=== PATIENT | female | born 1980 | race Caucasian/White ===

== ENCOUNTER 2024-02-22 11:05 | Emergency (ER) | payer MEDICAID ==
[~2024-02-22] VITALS: Ht 157.5 cm; Wt 46.3 kg
[2024-02-22] MEDS ORDERED: POLY10DR OP (11:28)
[2024-02-22 11:54] VITALS: BP 127/77; TEMP 98.1; O2SAT 100
== END 2024-02-22 11:54 | disposition home or self-care (01) ==
LOC: ER 11:05
DX: H10.9 Unspecified conjunctivitis (principal); Z88.8 Allergy status to other drugs, medicaments and biological substances